=== PATIENT | male | born 1940 | race Caucasian/White ===

== ENCOUNTER 2019-07-06 10:48 | Inpatient (IN) | payer MEDICARE, OTHER, BC ==
[~2019-07-06] VITALS: Ht 175.3 cm; Wt 81.6 kg
[2019-07-06 11:00] VITALS: BP 165/78
[2019-07-06] MEDS ORDERED: LIPITOR 20 MG T20 M1 PO (11:05)
[2019-07-06] MEDS ORDERED: ASPIR-LOW81 MG PO (11:06)
[2019-07-06] MEDS ORDERED: ZESTRIL20 MG PO (11:06)
[2019-07-06] MEDS ORDERED: METFORMIN HCL500 M3 PO (11:06)
[2019-07-06 11:29] LABS: ABSOLUTE BASOPHILS 0.1 thou/uL (0.0-0.2); ABSOLUTE EOSINOPHILS 0.3 thou/uL (0.0-0.7); ABSOLUTE LYMPHOCYTES 2.2 thou/uL (0.8-5.3); ABSOLUTE MONOCYTES 0.8 thou/uL (0.0-1.2); ABSOLUTE NEUTROPHILS 4.4 thou/uL (1.6-8.1); BASOPHILS 0.9 %; EOSINOPHILS 3.4 %; HEMOGLOBIN 14.8 gm/dL (14.0-18.0); LYMPHOCYTES 28.8 %; MCH 31.1 pg (26.0-34.0); MCHC 34.4 g/dL (28.0-37.0); MCV 90.2 fL (80.0-100.0); MONOCYTES 10.1 %; MPV 8.7 fl. (7.2-11.1); NUCLEATED RBCS 0 /100WBC; PLATELET COUNT* 284 thou/uL (150-400); POLYS 56.8 %; RBC 4.77 mil/uL (4.50-6.00); RDW-CV 13.7 % (10.5-14.5); WBC 7.7 thou/uL (4.0-11.0)
[2019-07-06 11:39] LABS: CALCIUM 8.7 mg/dL (8.5-10.1); POTASSIUM 4.3 mmol/L (3.5-5.1)
[2019-07-06 11:44] LABS: ALBUMIN 3.6 g/dL (3.4-5.0); TOTAL BILIRUBIN 0.7 mg/dL (<0.1-1.0)
--- NOTE | 2019-07-06 12:28 | NUR ---
SEE CODE STROKE FLOW SHEET
[2019-07-06 13:41] VITALS: BP 144/70
--- NOTE | 2019-07-06 13:54 | EKG ---
[place] [address] ELECTROCARDIOGRAM REPORT Name: RADHA MOULTON Room: [place] [address] ADM IN .R.#: [id number] Admission: 07/06/19 Attend Phys: Adelaide Fernandez Discharge: Date of : 40 Report #: [id number] THIS REPORT FOR: //name// [facility] ED Test Date: 2019-07-06 Test Time: 10:55:00 Pat Name: RADHA MOULTON Department: Room: [facility] Gender: M [employer]: : [id number] Requested By: Sherif Titus Order Number: [id number] MD: Greg Ferguson Measurements Intervals Sidney Rate: 70 P: VT: QRS: 39 QRSD: 93 T: 49 QT: 382 QTc: 413 Interpretive Statements Atrial flutter with predominant 4:1 AV block No previous ECG available for comparison Electronically Signed On 07-06-2019 13:54:16 MATERIAL PLANNING ANALYST by Greg Ferguson [email or web address] <ELECTRONICALLY SIGNED> By: Greg Ferguson MD, [facility] 07/06/19 1354 1055 1055 Greg Ferguson MD, FAC /EPI
--- NOTE | 2019-07-06 14:09 | NUR ---
PT ORIENTED TO ROOM AND UNIT. BED LOW AND LOCKED, SIDE RIALS UP X3, CALL LIGHT IN REACH. TELE APPLIED, ALL FORM SIGNED. WILL CONTINUE TO ASSESS.
--- NOTE | 2019-07-06 15:08 | NUR ---
PT OFF UNIT TO MRI.
[2019-07-06 16:00] VITALS: BP 141/72
--- NOTE | 2019-07-06 16:07 | NUR ---
PT RETURN FROM MRI.
--- NOTE | 2019-07-06 16:38 | 2DMMODE ---
[place] [address] 2 D/M-MODE ECHOCARDIOGRAM Name: RADHA MOULTON Room: [address] IN [facility]#: [id number] Admission: 07/06/19 Attend Phys: Kobe Torres Discharge: Date of : 40 Date of Service: 07/06/19 1637 Report #: [id number] THIS REPORT FOR: //name// APPROVED REPORT Study performed: 07/06/2019 15:33:49 EXAM: Comprehensive 2D, Doppler, and color-flow Echocardiogram Patient Location: In-Patient Room #: 208 Status: routine BSA: 1.98 HR: 61 bpm BP: 144/70 mmHg Rhythm: NSR Other Information Study Quality: Good Indications CVA/TIA Echo Enhancing Agent Indication: Rule out Shunt Agent(s) / Amount(s) Used: Agitated Saline 10 cc 2D Dimensions IVSd: 9.79 (7-11mm) LVOT Diam: 19.98 (18-24mm) LVDd: 45.07 mm PWd: 10.74 (7-11mm) Ascending Ao: 37.89 (22-36mm) LVDs: 26.89 (25-40mm) Aortic Root: 32.41 mm Volumes Left Atrial Volume (Systole) LA ESV Index: 22.80 mL/m2 Aortic Valve AoV Peak Melecio.: 1.10 m/s AO Peak Gr.: 4.84 mmHg LVOT Max P.68 mmHg AO Mean Gr.: 2.91 mmHg LVOT Mean P.14 mmHg LVOT Max V: 1.08 m/s AO V2 VTI: 25.11 cm LVOT Mean V: 0.66 m/s VERONICA (VTI): 3.11 cm2 LVOT V1 VTI: 24.90 [place] [address] 2 D/M-MODE ECHOCARDIOGRAM Name: RADHA MOULTON Room: [address] IN .R.#: [id number] Admission: 07/06/19 Attend Phys: Kobe Torres Discharge: Date of : 40 Date of Service: 07/06/19 1637 Report #: [id number] Mitral Valve E/A Ratio: 0.83 MV Decel. Time: 174.04 ms MV E Max Melecio.: 0.76 m/s MV PHT: 50.47 ms MVA (PHT): 4.36 cm2 TDI E/Lateral E': 8.44 E/Medial E': 9.50 Medial E' Melecio.: 0.08 m/s Lateral E' Melecio.: 0.09 m/s Pulmonary Valve PV Peak Melecio.: 0.94 m/s PV Peak Gr.: 3.52 mmHg Tricuspid Valve RAP Estimate: 5.00 mmHg TR Peak Gr.: 24.48 mmHg RVSP: 29.00 mmHg PA Pressure: 29.00 mmHg Left Ventricle The left ventricle is normal size. There is normal LV segmental wall motion. There is normal left ventricular wall thickness. Left ventricular systolic function is normal. The left ventricular ejection fraction is within the normal range. LVEF is 60-65%. Grade I - abnormal relaxation pattern. Right Ventricle The right ventricle is normal size. The right ventricular systolic function is normal. Atria The left atrium size is normal. Interatrial septum is intact without evidence of ASD or PFO. The right atrium size is normal. Aortic Valve Mild aortic valve sclerosis. No aortic regurgitation is present. There is no aortic valvular stenosis. Mitral Valve The mitral valve is normal in structure. Trace mitral regurgitation. No evidence of mitral valve stenosis. Tricuspid Valve The tricuspid valve is normal in structure. [place] [address] 2 D/M-MODE ECHOCARDIOGRAM Name: RADHA MOULTON Room: [address] IN ..#: [id number] Admission: 07/06/19 Attend Phys: Kobe Torres Discharge: Date of : 40 Date of Service: 07/06/19 1637 Report #: [id number] Pulmonic Valve The pulmonary valve is normal in structure. Trace pulmonic regurgitation. Great Vessels Aortic root is mildly dilated. IVC is normal in size and collapses >50% with inspiration. Pericardium There is no pericardial effusion. <Conclusion> LVEF is 60-65%. Interatrial septum is intact without evidence of ASD or PFO. <ELECTRONICALLY SIGNED> By: Levi Sotelo MD, [facility] 07/06/19 1637 1637 1637 Levi Sotelo MD, FACC /INF
--- NOTE | 2019-07-06 16:48 | NUR ---
PT IS COMPLETELY REFUSING TO ALLOW STAFF TO TURN HIM TO CHANGE [facility] AND [facility]UX.
--- NOTE | 2019-07-06 19:05 | NUR ---
EVENIING BLOOD GLUCOSE WAS 138.
[2019-07-06 20:30] VITALS: BP 144/81
[2019-07-07] VITALS: BP 121/59
[2019-07-07 04:10] VITALS: BP 123/62
[2019-07-07 06:05] LABS: ALBUMIN 3.3 g/dL (3.4-5.0); ALKALINE PHOSPHATASE 77 U/L (46-116); ANION GAP 9 mmol/L (7-16); BUN 14 mg/dL (7-18); CALCIUM 8.4 mg/dL (8.5-10.1); CHLORIDE 105 mmol/L (98-107); CHOLESTEROL 110 mg/dL (<200); CO2 27 mmol/L (21-32); CREATININE 0.8 mg/dL (0.6-1.3); GLUCOSE 114 mg/dL (70-99); HDL CHOLESTEROL 57 mg/dL (>40); LDL CHOLESTEROL 26 mg/dL (<100); SGOT 20 U/L (15-37); SGPT 30 U/L (30-65); SODIUM 141 mmol/L (136-145); TC:HDL 1.9 Ratio (Not establshd); TOTAL BILIRUBIN 0.8 mg/dL (<0.1-1.0); TOTAL PROTEIN 6.2 g/dL (6.4-8.2); TRIGLYCERIDE 138 mg/dL (<150); VLDL 28 mg/dL (<40)
--- NOTE | 2019-07-07 06:05 | NUR ---
ASSUMED CARE OF PATIENT AT APPROX 1930. ALERT AND ORIENTED X4. ASSESSMENT COMPLETED AND CHARTED. NIH COMPLETED AND REMIANS NEGATIVE. PATIENT CONCERNED THAT HIS RIGHT LEG AND HAND FEEL WEAK BUT ASSESSMENT SHOWS NO WEAKNESS. PATIENT IS UNSTEADY DUE TO HIS FEELING WEAK ON THE RIGHT SIDE, NEEDS ASSISTANCE TO USE THE BATHROOM AND USES THE URINAL AT BEDSIDE. NO OTHER COMPLAINTS THIS SHIFT. CALL LIGHT IS WITHIN REACH. HOURLY ROUNDS COMPELTED. WILL CONTINUE WITH PLAN OF CARE.
[2019-07-07 06:10] LABS: SERUM ASSESSMENT CLEAR
[2019-07-07 08:00] VITALS: BP 118/68
[2019-07-07 12:00] VITALS: BP 142/77
[2019-07-07] MEDS ORDERED: LEVO-T100 MCG PO (13:14)
--- NOTE | 2019-07-07 14:02 | NUR ---
special services coordinator: Met with patient, reviewed Stroke Education, risk factors, etc. Patient planning to return to [place] on Wednesday. not in room , but indicated earlier that she had history of TIA and both had prior education. No concerns expressed at this time.
--- NOTE | 2019-07-07 14:33 | NUR ---
CM spoke with Pt and in room. Pt and live in [facility] and have plans to fly back on Wednesday at 130pm. Neuro to see today, CM suggested that they wait to see if they need to alter their plans after seeing neuro. Pt is normally independent, no DME. Pt states that he may need a walker. Pt and were in the [facility] for the past 2 months visiting family. Following.
[2019-07-07 16:00] VITALS: BP 142/81
[2019-07-07 20:00] VITALS: BP 147/78
[2019-07-07 23:08] LABS: GLYCOHEMOGLOBIN (HGB A1C) 6.8 % (4.8-5.6)
[2019-07-08] VITALS: BP 141/73
--- NOTE | 2019-07-08 01:13 | NUR ---
INITAL ASSESMENT COMPLETED AGT 1999. PT PLEASANT AND COOPERATIVE AT THT TIME. PT DENIED PAIN OR DISCOMFORT. NIH SCORE0. CLL LIGHT IN REACH, PT DEMONSTRATES PROPER USE.
[2019-07-08 04:00] VITALS: BP 116/57
[2019-07-08 08:00] VITALS: BP 140/74
[2019-07-08 16:23] VITALS: BP 139/83
--- NOTE | 2019-07-08 19:56 | NUR ---
ASSUMED PT CARE AT 0730, FULL ASSESMENT DONE CHARTED. PT A/O X4, DENIES PAIN, VSS, SR ON THE MONITOR, CHANGED TO M/S THIS AFTERNOON. NIH 0. PT UP WITH ASSIST/WALKER, CALLS APPROPRIALTY FOR NEEDS. PROGRESSING TOWARD GOALS. UP WALKING WITH STAFF THIS EVENING AND WORKED WITH PT TODAY.
[2019-07-08 20:00] VITALS: BP 159/91
[2019-07-09] VITALS: BP 155/84
--- NOTE | 2019-07-09 06:48 | NUR ---
ASSUMED ACRE OF PT AFTER REPORT AT 1930. PT A&OX4. VSS. PHYSICAL ASSESSMENT COMPLETED AND CHARTED. PT ON RA. PT ON MEDSURG STATUS. PT UPSTANDBY. NIH CHARTED. PT DENIES ANY PAIN OR DISCOMFORT. CALL LIGHT WITHIN REACH.
[2019-07-09 08:00] VITALS: BP 162/95
[2019-07-09 16:05] VITALS: BP 111/86
--- NOTE | 2019-07-09 19:58 | NUR ---
PT PROGRESSING TOWARD GOALS. PT UP WITH PT TODAY, WALKED AND USED STAIRS. PT USING WALKER. FEELS MORE STEADY TODAY. VSS, M/S STATUS, IV REMOVED. PT CALLS APPROPRIATLY FOR NEEDS. C/O WISDOM THIS AFTERNOON, MEDS GIVEN PER AUG. HEATING PAD PROVIDED. PT WANTS WALKER FOR DISCHARGE. REPORT GIVEN TO MARJORIE MERCHANT
[2019-07-09 20:00] VITALS: BP 132/71
[2019-07-10] VITALS: BP 159/80
[2019-07-10 04:00] VITALS: BP 133/71
--- NOTE | 2019-07-10 06:19 | NUR ---
ASSUMED CARE OF PT AFTER REPORT AT 1930. PT A&OX4. VSS. PHYSICAL ASSESSMENT COMPLETED AND CHARTED. PT ON RA. PT ON MEDSURG STATUS. PT UPSTANDBY TO RESTROOM. NIH CHARTED. PT COMPLAINED OF HEADACHE- MEDS GIVEN PER MAR. PT ABLE TO SLEEP WELL ON BED. CALL LIGHT WITHIN REACH.
[2019-07-10 08:00] VITALS: BP 144/79
--- NOTE | 2019-07-10 09:40 | NUR ---
Pt to dc today, flight back to [place] tomorrow. Walker order faxed to [facility], therapies to deliever to Pt's room prior to dc.
[2019-07-10 11:18] VITALS: BP 128/74
[2019-07-10] MEDS ORDERED: MINOCYCLINE HC100 M2 PO ×2 (13:09→14:20)
[2019-07-10] MEDS ORDERED: PLAVIX 75 MG TA75 M1 PO (13:09)
[2019-07-10] MEDS ORDERED: PLAVIX 75 MG TA75 MG PO (14:21)
[2019-07-10 14:27] VITALS: BP 128/74
--- NOTE | 2019-07-10 15:08 | NUR ---
RECEIVED REPORT. ASSUMED CARE OF PT AROUND 729. PT A&O X4. VSS. M/S STATUS. AM ASSESSMENT AND VITALS COMPLETED CHARTED. PT DENIES PAIN OR DISCOMFORT. TOLERATING DIET. AT BEDSIDE. DISCHARGE ORDERS RECEIVED. DISCHARGE COMPLETED CHARTED. PT AWARE OF FOLLOW UP APPOINTMENTS TO BE MADE ONCE HE GETS HOME TO [place]. SCRIPTS GIVEN. CARE NOTES GIVEN. DISCHARGE NIH 0. ALL BELONGINGS GATHERED AND SENT HOME WITH PT. WALKER AND CD OF IMAGING GIVEN TO PT. PT LEFT UNIT IN WHEELCHAIR WITH NURSING STAFF. PT LEFT HOSPITAL IN CAR WITH WITH .
== END 2019-07-10 15:15 | disposition home or self-care (01) | DRG 65 ==
LOC: M.ERS 10:48 → M.TBA-ER 12:10 → M.2W 12:10
PROVIDERS: Emergency Medicine Emergency Medical Services; ADMIT Internal Medicine
DX: I63.9 Cerebral infarction, unspecified (principal); E44.1 Mild protein-calorie malnutrition; G81.91 Hemiplegia, unspecified affecting right dominant side; E78.5 Hyperlipidemia, unspecified; E11.9 Type 2 diabetes mellitus without complications; I10 Essential (primary) hypertension; E78.00 Pure hypercholesterolemia, unspecified; Z79.82 Long term (current) use of aspirin; Z79.899 Other long term (current) drug therapy; Z79.84 Long term (current) use of oral hypoglycemic drugs; Z88.8 Allergy status to other drugs, medicaments and biological substances; Z80.0 Family history of malignant neoplasm of digestive organs; Z68.26 Body mass index [BMI] 26.0-26.9, adult; Z23 Encounter for immunization